=== PATIENT | male | born 1980 ===

== ENCOUNTER 2024-12-02 10:16 | Emergency (ER) | payer OTHER, BC ==
[~2024-12-02] VITALS: Ht 177.8 cm; Wt 106.6 kg
[2024-12-02 10:25] VITALS: BP 155/98
[2024-12-02] MEDS ORDERED: Diphth,Pertuss(Acell),Tet Vac 0.5 ML VIAL IM ONE (10:40)
== END 2024-12-02 11:24 | disposition home or self-care (01) ==
LOC: ER 10:16
DX: S63.610A Unspecified sprain of right index finger, initial encounter (principal); W23.0XXA Caught, crushed, jammed, or pinched between moving objects, initial encounter
CPT/HCPCS: 29130; 73140; 90471; 90715; 99283-25